=== PATIENT | female | born 1950 | race Caucasian/White ===

== ENCOUNTER 2018-11-22 12:52 | Inpatient (IN) ==
[2018-11-22] MEDS ORDERED: Isovue-370 500 ML BOTTLE IVP ONE (13:52)
[2018-11-22] MEDS ORDERED: Ipratropium/Albuterol Neb 3 ML IH ONE (13:52)
[2018-11-22] MEDS ORDERED: Ondansetron 4 MG/2 ML VIAL IVP ONE (13:52)
[2018-11-22 14:19] LABS: Basophils % 0.2 %; Hematocrit 50.8 % (35.3-44.9); Hemoglobin 16.3 g/dL (11.5-15.4); Immature Granulocytes % 0.6 % (0-4); Lymphocytes # 1.1 K/mcL (0.6-4.6); Lymphocytes % 8.6 %; Mean Corpuscular HGB Conc 32.1 g/dL (31.6-35.5); Mean Corpuscular Hemoglobin 28.2 pg (28.0-33.3); Mean Platelet Volume 9.7 fL (9.4-12.4); Monocytes # 0.8 K/mcL (0.0-1.3); Monocytes % 5.8 %; Neutrophils # 11.3 K/mcL (1.6-8.9); Platelet Count 177 K/mcL (140-400); Red Blood Count 5.77 M/mcL (3.82-4.97); Red Cell Distribution Width 15.8 % (11.5-14.5); Segmented Neutrophils % 84.8 %; White Blood Count 13.3 K/mcL (4.3-11.1)
[2018-11-22 14:26] LABS: INR 1.2; Prothrombin Time 13.5 Seconds (9.4-12.1)
[2018-11-22 14:29] LABS: Activated Partial Thrombo Time 34.8 Seconds (26.0-36.0)
[2018-11-22 14:40] LABS: Troponin I 0.04 ng/mL (< 0.04)
[2018-11-22] MEDS ORDERED: 0.9 % Sodium Chloride 1,000 ML IV ONE (14:45)
[2018-11-22] MEDS ORDERED: 0.9 % Sodium Chloride 1,000 ML IVC ONE (14:48)
[2018-11-22] MEDS ORDERED: Aspirin 325 MG TABLET PO ONE (14:48)
[2018-11-22 14:59] LABS: Alanine Aminotransferase 12 Units/L (7-52); Albumin 4.2 g/dL (3.5-5.7); Albumin/Globulin Ratio 1.3 (1.1-2.2); Alkaline Phosphatase 69 Units/L (34-104); Aspartate Amino Transferase 17 Units/L (13-39); BUN/Creatinine Ratio 46 (6-26); Bilirubin,Direct 0.3 mg/dL (0.0-0.2); Bilirubin,Indirect 0.5 mg/dL (0.0-1.2); Bilirubin,Total 0.8 mg/dL (0.3-1.0); Blood Urea Nitrogen 33 mg/dL (8-23); Calcium 9.7 mg/dL (8.6-10.3); Carbon Dioxide 28 mEq/L (23-29); Chloride 101 mEq/L (98-107); Globulin 3.3 g/dL (2.4-3.5); Glucose 99 mg/dL (70-105); Lipase 5 Units/L (11-82); Magnesium 2.3 mg/dL (1.6-2.6); Osmolality,Calculated 299 (280-300); Phosphorous 2.9 mg/dL (2.7-4.5); Potassium 3.7 mEq/L (3.5-5.1); Sodium 141 mEq/L (136-145); Total Protein 7.5 g/dL (6.4-8.9); eGFR For African Americans > 60 (> 60); eGFR For Non-African Americans > 60 (> 60)
[2018-11-22 16:39] LABS: Bilirubin,Urine Small (Negative); Blood,Urine Trace-intact (Negative); Clarity,Urine Clear (Clear); Color,Urine Yellow (Yellow); Glucose,Urine (UA) Normal (Normal); Ketones,Urine 15 mg/dL (Negative); Leukocyte Esterase,Urine Negative (Negative); Nitrite,Urine Negative (Negative); Protein,Urine 100 mg/dL (Neg-Trace)
[2018-11-22 16:41] LABS: Bacteria,Urine None Seen per hpf (None-Few); Hyaline Casts,Urine Few per lpf (None-Few); Squamous Epithelial Cell,Urine Many per lpf (None-Few)
--- NOTE | 2018-11-22 19:10 | Emergency Department Note ---
Disposition Clinical Impression: Bronchitis, Hypoxia, Nausea and vomiting Disposition: Admitted As Inpatient Condition: Good Referrals: NONE,PCP [Primary Care Provider] - Forms: ED Satisfaction Letter Time of Disposition: 20:40 General Adult HPI - General Chief complaint: ED Nausea/Vomiting/Diarrhea Stated complaint: N/V Time Seen by Provider: 11/22/18 13:49 Source: patient, family Limitations: no limitations - History of Present Illness HPI Narrative: Patient 68-year-old female that presents to the emergency department with chief complaint of shortness of breath and nausea and vomiting. The patient states that she has been feeling generally unwell for the last several days also reports she has had a cough and shortness of breath with this as well. Upon presentation the emergency department the patient had a low oxygen saturation in the 80s. The patient would require up to 4 L nasal cannula oxygen to maintain her saturations. The patient states that she also has prior history of a thoracic aneurysm that has not been followed in some time. Patient denies chest pain states that she does have prior history of asthma and also smokes cigarettes. Patient reports she has not been officially diagnosed with COPD Pain Scale: 4 - Related Data Home Medications Medication Instructions Recorded Confirmed Aspirin/Acetaminophen/Caffeine 1 tab PO DAILY PRN 11/22/18 11/22/18 [Excedrin Migraine Caplet] Benazepril/Hydrochlorothiazide 20 - 25 mg PO DAILY 11/22/18 11/22/18 Allergies Allergy/AdvReac Type Severity Reaction Status Date / Time No Known Allergies Allergy Verified 11/22/18 13:08 All systems ED: reviewed and negative except as stated. Past Medical History - Past Medical History Attestation: Yes The following information was validated with the patient. Medical history: Reports: COPD, GERD, hypertension Psychiatric history: Reports: no psych history - Social History Smoking Status: Current every day smoker Alcohol use: Reports: none Drug use: Reports: none Physical Exam General: Conversant and pleasant interactive and nontoxic. Head: Normocephalic/atraumatic Eyes:PERRLA, EOMI, no conjunctivitis Nares: Without d/c. Ears: No erythema or d/c noted. Oralpharnyx: P&MMM noted, Neck: Supple, no JVD or PIPE STEM SAWYER noted. Cardovascular: regular rate and rhythm without murmur, brisk capillary refill, no peripheral edema. Lungs: Scattered wheezes present bilaterally, non-labored Abd: Soft nontender, Non Distended, no guarding, no rebound. : Defered Extremities: moves all extremities equally Neuro: AOx3, no obvious gross neuro deficit Psych: Normal Affect Derm: No rash noted - General Limitations: no limitations General appearance: alert, in no apparent distress Course Course Narrative: The patient received DuoNeb to the emergency department due to her prior history of thoracic aortic aneurysm and shortness of breath the patient underwent a CT dissection protocol to evaluate for possible dissection or increasing size of her aneurysms. The CT found that the patient also had a infrarenal aneurysm that was 4.5 cm in size. Patient is currently not having abdominal pain and this can be followed by vascular. The CT scan did show that the patient had evidence of a bronchitis on the imaging. The patient will be given steroids and more breathing treatments in the emergency department given the fact that she has decreased oxygenation the patient case will be discussed with the hospitalist for admission. Vital Signs Temperature 98.1 F 11/22/18 13:06 Pulse Rate 108 11/22/18 13:06 Respiratory Rate 26 11/22/18 13:06 Blood Pressure 108/77 11/22/18 13:06 O2 Sat by Pulse Oximetry 94 11/22/18 13:06 Temperature 99 F 11/22/18 14:30 Pulse Rate 73 11/22/18 19:33 Respiratory Rate 20 11/22/18 19:33 Blood Pressure 143/83 11/22/18 19:33 O2 Sat by Pulse Oximetry 93 11/22/18 19:33 Oxygen Delivery Oxygen Delivery Nasal Cannula Medical Decision Making - Lab Data Result diagrams: 11/22/18 13:50 11/22/18 13:50 Lab Results 11/22/18 11/22/18 11/22/18 Range/Units 13:50 13:50 13:50 WBC 13.3 H (4.3-11.1) K/mcL RBC 5.77 H (3.82-4.97) M/mcL Hgb 16.3 H (11.5-15.4) g/dL Hct 50.8 H (35.3-44.9) % MCV 88.0 (83.0-100.0) fL MCH 28.2 (28.0-33.3) pg MCHC 32.1 (31.6-35.5) g/dL RDW 15.8 H (11.5-14.5) % Plt Count 177 (140-400) K/mcL MPV 9.7 (9.4-12.4) fL Immature Gran % 0.6 (0-4) % Seg Neutrophils % 84.8 % Lymphocytes % 8.6 % Monocytes % 5.8 % Eosinophils % 0.0 % Basophils % 0.2 % Neutrophils # 11.3 H (1.6-8.9) K/mcL Lymphocytes # 1.1 (0.6-4.6) K/mcL Monocytes # 0.8 (0.0-1.3) K/mcL Eosinophils # 0.0 (0.0-0.6) K/mcL Basophils # 0.0 (0.0-0.2) K/mcL PT 13.5 H (9.4-12.1) Seconds INR 1.2 APTT 34.8 (26.0-36.0) Seconds Sodium 141 (136-145) mEq/L Potassium 3.7 (3.5-5.1) mEq/L Chloride 101 (98-107) mEq/L Carbon Dioxide 28 (23-29) mEq/L BUN 33 H (8-23) mg/dL Creatinine 0.72 (0.60-1.20) mg/dL Est GFR ( Amer) > 60 (> 60) Est GFR (Non-Af Amer) > 60 (> 60) BUN/Creatinine Ratio 46 H (6-26) Glucose 99 (70-105) mg/dL Calculated Osmolality 299 (280-300) Lactic Acid (0.5-2.2) mmol/L Calcium 9.7 (8.6-10.3) mg/dL Phosphorus 2.9 (2.7-4.5) mg/dL Magnesium 2.3 (1.6-2.6) mg/dL Total Bilirubin 0.8 (0.3-1.0) mg/dL Direct Bilirubin 0.3 H (0.0-0.2) mg/dL Indirect Bilirubin 0.5 (0.0-1.2) mg/dL AST 17 (13-39) Units/L ALT 12 (7-52) Units/L Alkaline Phosphatase 69 (34-104) Units/L Troponin I 0.04 H* (< 0.04) ng/mL B-Natriuretic Peptide (Less than 100) pg/mL Serum Total Protein 7.5 (6.4-8.9) g/dL Albumin 4.2 (3.5-5.7) g/dL Globulin 3.3 (2.4-3.5) g/dL Albumin/Globulin Ratio 1.3 (1.1-2.2) Lipase 5 L (11-82) Units/L Urine Color (Yellow) Urine Clarity (Clear) Urine pH (5.0-8.0) pH Units Ur Specific [place] (1.010-1.025) Urine Protein (Neg-Trace) mg/dL Urine Glucose (UA) (Normal) mg/dL Urine Ketones (Negative) mg/dL Urine Blood (Negative) Urine Nitrite (Negative) Urine Bilirubin (Negative) Urine Urobilinogen (Normal) mg/dL Ur Leukocyte Esterase (Negative) Urine Microscopic RBC (0-3) per hpf Urine Microscopic WBC (0-3) per hpf Ur Squamous Epith Cells (None-Few) per lpf Urine Bacteria (None-Few) per hpf Hyaline Casts (None-Few) per lpf Ur Culture Indicated? (NO) 11/22/18 11/22/18 11/22/18 Range/Units 13:50 13:50 16:18 WBC (4.3-11.1) K/mcL RBC (3.82-4.97) M/mcL Hgb (11.5-15.4) g/dL Hct (35.3-44.9) % MCV (83.0-100.0) fL MCH (28.0-33.3) pg MCHC (31.6-35.5) g/dL RDW (11.5-14.5) % Plt Count (140-400) K/mcL MPV (9.4-12.4) fL Immature Gran % (0-4) % Seg Neutrophils % % Lymphocytes % % Monocytes % % Eosinophils % % Basophils % % Neutrophils # (1.6-8.9) K/mcL Lymphocytes # (0.6-4.6) K/mcL Monocytes # (0.0-1.3) K/mcL Eosinophils # (0.0-0.6) K/mcL Basophils # (0.0-0.2) K/mcL PT (9.4-12.1) Seconds INR APTT (26.0-36.0) Seconds Sodium (136-145) mEq/L Potassium (3.5-5.1) mEq/L Chloride (98-107) mEq/L Carbon Dioxide (23-29) mEq/L BUN (8-23) mg/dL Creatinine (0.60-1.20) mg/dL Est GFR ( Amer) (> 60) Est GFR (Non-Af Amer) (> 60) BUN/Creatinine Ratio (6-26) Glucose (70-105) mg/dL Calculated Osmolality (280-300) Lactic Acid 1.8 (0.5-2.2) mmol/L Calcium (8.6-10.3) mg/dL Phosphorus (2.7-4.5) mg/dL Magnesium (1.6-2.6) mg/dL Total Bilirubin (0.3-1.0) mg/dL Direct Bilirubin (0.0-0.2) mg/dL Indirect Bilirubin (0.0-1.2) mg/dL AST (13-39) Units/L ALT (7-52) Units/L Alkaline Phosphatase (34-104) Units/L Troponin I (< 0.04) ng/mL B-Natriuretic Peptide 73 (Less than 100) pg/mL Serum Total Protein (6.4-8.9) g/dL Albumin (3.5-5.7) g/dL Globulin (2.4-3.5) g/dL Albumin/Globulin Ratio (1.1-2.2) Lipase (11-82) Units/L Urine Color Yellow (Yellow) Urine Clarity Clear (Clear) Urine pH 6.0 (5.0-8.0) pH Units Ur Specific [place] 1.020 (1.010-1.025) Urine Protein 100 H (Neg-Trace) mg/dL Urine Glucose (UA) Normal (Normal) mg/dL Urine Ketones 15 H (Negative) mg/dL Urine Blood Trace-intact H (Negative) Urine Nitrite Negative (Negative) Urine Bilirubin Small H (Negative) Urine Urobilinogen 2.0 H (Normal) mg/dL Ur Leukocyte Esterase Negative (Negative) Urine Microscopic RBC 3-5 H (0-3) per hpf Urine Microscopic WBC 3-5 H (0-3) per hpf Ur Squamous Epith Cells Many H (None-Few) per lpf Urine Bacteria None Seen (None-Few) per hpf Hyaline Casts Few (None-Few) per lpf Ur Culture Indicated? NO (NO)
[2018-11-22] MEDS ORDERED: methylPREDNISolone 125 MG/2 ML VIAL IVP ONE (19:11)
[2018-11-22] MEDS ORDERED: Azithromycin 500 MG in D5% in Water 250 ML IVPB ONE (20:34)
[2018-11-22] MEDS ORDERED: Naloxone 0.4 MG/ML INJ IVP PRN (21:17)
[2018-11-22] MEDS ORDERED: Ondansetron 4 MG/2 ML VIAL IVP PRN (21:17)
[2018-11-22] MEDS ORDERED: *HR* HYDROcodone/Acet 5/325 mg TABLET PO PRN (21:17)
[2018-11-22] MEDS ORDERED: Acetaminophen 325 MG TABLET PO PRN (21:17)
[2018-11-22] MEDS ORDERED: *HR* OxyCODONE Immed Rel 5 MG TABLET PO PRN (21:17)
--- NOTE | 2018-11-22 21:25 | Internal Med History&Physical ---
Date of Encounter: 11/22/18 Time of Encounter: 21:23 Internal Medicine - H&P: HPI Chief complaint: Dyspnea, cough Admitted From: Emergency Dept Plans for Post Hospital Care: Home History of present illness: Ms. Tran is a 68 year old female with history of hypertension presents with shortness of breath and cough. Patient states that her symptoms developed 3 days ago they have been gradually worsening over that time. She reports significant shortness of breath that is worse with ambulation. She reports Dr. stewart with white sputum. She states her daughter was recently diagnosed with bronchitis. She states nothing seems to make her symptoms better. She reports subjective fevers and chills. She states this feels similar to when she had pneumonia several years ago. She reports occasional episodes of nausea and vomiting. She denies chest pain, abdominal pain. Discussed with patient who wishes to be full code. Past Med Surg Social Fam HX - Past Medical History Medical history: COPD, GERD, hypertension Psychiatric history: no psych history - Past Surgical History Surgical History: non-contributory - Social History Smoking Status: Current every day smoker Alcohol use: none Drug use: none - Additional Family History Additional family history: Patient denies any significant family history. Internal Medicine - H&P: Meds Aspirin/Acetaminophen/Caffeine [Excedrin Migraine Caplet] 1 tab PO DAILY PRN [History] Benazepril/Hydrochlorothiazide 20 - 25 mg PO DAILY 11/22/18 [History] Allergy/AdvReac Type Severity Reaction Status Date / Time No Known Allergies Allergy Verified 11/22/18 13:08 All Systems PM: A 10-system review of systems was performed and is negative for pertinent findings except as documented above in the HPI. Review of systems: 10 point review of systems was obtained and negative other than stated below: - Constitutional Constitutional: no chills, no fever(s) - Cardiovascular Cardiovascular ROS IM: dyspnea, dyspnea on exertion, no chest pain - Respiratory Respiratory: cough, chest congestion, excessive phlegm production, change in phlegm color - Gastrointestinal Gastrointestinal: nausea, vomiting, no abdominal pain - Musculoskeletal Musculoskeletal ROS IM: no numbness, no tingling - Constitutional Vitals: Temp Pulse Resp BP Pulse Ox 99 F 73 20 143/83 93 11/22/18 14:30 11/22/18 19:33 11/22/18 19:33 11/22/18 19:33 11/22/18 19:33 General appearance: Present: A&O X 3, pleasant Exam: Mild respiratory distress - Head Head exam: Present: atraumatic, normal inspection, normocephalic - Eye Eye exam: Present: EOMI, PERRL - ENT ENT exam: Present: mucous membranes moist, normal oropharynx - Neck Neck exam general surgery: Present: full ROM. Absent: tenderness - Respiratory Respiratory exam: Present: respiratory distress (mild), rhonchi (Diffuse), wheezes (Occasional end expiratory). Absent: rales, tachypnea - Cardiovascular Cardiovascular exam: Present: RRR. Absent: gallop, rubs, systolic murmur - GI/Abdominal GI/Abdominal exam: Present: normal bowel sounds, soft. Absent: distended, tenderness - Extremities Exam Extremities exam: Present: warm. Absent: pedal edema, tenderness - Neurological Exam Neurological exam: Present: alert, CN II-XII intact, oriented X3, no focal deficits, strengths equal and symetr throughout. Absent: facial droop, speech deficit - Psychiatric Psychiatric exam: Present: normal affect, normal mood Internal Med - H&P Results - Labs CBC & Chem 7: 11/22/18 13:50 11/22/18 13:50 Labs: Short CBC 11/22/18 Range/Units 13:50 WBC 13.3 H (4.3-11.1) K/mcL Hgb 16.3 H (11.5-15.4) g/dL Hct 50.8 H (35.3-44.9) % Plt Count 177 (140-400) K/mcL Neutrophils # 11.3 H (1.6-8.9) K/mcL BMP 11/22/18 13:50 Sodium 141 Potassium 3.7 Chloride 101 Carbon Dioxide 28 BUN 33 H Creatinine 0.72 Glucose 99 Calcium 9.7 Cardiac Enzymes 11/22/18 Range/Units 13:50 Troponin I 0.04 H* (< 0.04) ng/mL Liver Function 11/22/18 Range/Units 13:50 Total Bilirubin 0.8 (0.3-1.0) mg/dL Direct Bilirubin 0.3 H (0.0-0.2) mg/dL AST 17 (13-39) Units/L ALT 12 (7-52) Units/L Alkaline Phosphatase 69 (34-104) Units/L Albumin 4.2 (3.5-5.7) g/dL Urine 11/22/18 Range/Units 16:18 Urine Color Yellow (Yellow) Urine Clarity Clear (Clear) Urine pH 6.0 (5.0-8.0) pH Units Ur Specific [place] 1.020 (1.010-1.025) Urine Protein 100 H (Neg-Trace) mg/dL Urine Glucose (UA) Normal (Normal) mg/dL - Impressions ITS Impressions Chest X-Ray 11/22/18 13:51 IMPRESSION: No acute pulmonary process. D/ / 11/22/2018 14:09:06 Tee Henson MD / angel Interpreting Provider: Tee Henson MD Dissection 11/22/18 13:52 IMPRESSION: 1. Extensive coronary and aortic atherosclerotic calcifications. A 4.3 cm ascending thoracic aortic aneurysm. A 4.5 cm infrarenal abdominal aortic aneurysm (see recommendations). A 1.7 cm distal right common iliac artery aneurysm. No evidence of aortic dissection. 2. No acute pulmonary emboli. 3. Bilateral lower lobe predominance bronchitis/bronchiolitis. No lobar pneumonia. 4. A 0.7 cm solid right lower lobe pulmonary nodule, see recommendations. 5. No acute abdominal/pelvic process. Extensive sigmoid colonic diverticulosis. 6. Cholelithiasis with no evidence of acute cholecystitis or biliary obstruction. RECOMMENDATIONS: Managing Abdominal Aortic Aneurysms 4.0-4.4 cm: Every 1 year. Recommend vascular consultation. 4.5-5.4 cm: Every 6 months. Recommend vascular consultation. Greater than or equal to 5.5 cm: Referral to vascular surgeon. *For abdominal aortas with maximum diameter of 2.6-2.9 cm meeting criteria for AAA (>50% of proximal normal segment). Reference: J Vasc Surg. 2009 Mar;50(4 Suppl):S2-49 Fleischner Society guidelines for follow-up and management of incidentally detected pulmonary nodules: Single Solid Nodule: Nodule size equals 6-8 mm In a low-risk patient, CT at 6-12 months, then consider CT at 18-24 months. In a high-risk patient, CT at 6-12 months, then CT at 18-24 months. Nodule size greater than 8 mm In a low-risk patient, consider CT at 3 months, PET/CT, or tissue sampling. In a high-risk patient, consider CT at 3 months, PET/CT, or tissue sampling. - Low risk patients include individuals with minimal or absent history of smoking and other known risk factors. - High risk patients include individuals with a history or smoking or known risk factors. Radiology 2017 http://pubs.rsna.org/doi/full/10.1148/radiol.5611327419 D/ / 11/22/2018 16:42:32 Tee Henson MD / jennifer Interpreting Provider: Tee Henson MD - Assessment and Plan (1) Acute respiratory failure with hypoxia Current Visit: Yes Status: Acute Assessment and plan: Patient presented with shortness of breath and hypoxia requiring 5 L of oxygen to maintain her saturation in the low 90s. Secondary to bronchitis and COPD exacerbation. Continue supplemental oxygen to maintain saturation greater than 88%. (2) COPD exacerbation Current Visit: Yes Status: Acute Assessment and plan: Secondary to bronchitis. Patient presents with increasing shortness of breath, sputum production, change in sputum color. Patient has there been diagnosed formally COPD but we will treat for presumed underlying COPD with exacerbation given her smoking history and wheezing on exam. Start antibiotics with azithromycin and Rocephin, IV Solu-Medrol 60 mg every 6, scheduled bronchodilators. (3) Bronchitis Current Visit: Yes Status: Acute Assessment and plan: CT scan shows inflammation of the bronchus concerning for bronchitis. No evidence of overt pneumonia however patient is diffusely rhonchorous. We will treat with Rocephin and Zithromax for now given her hypoxia. Check procalcitonin, respiratory infection panel, strep and legionella urinary an tigen. (4) Hypertension Current Visit: Yes Status: Acute Assessment and plan: Blood pressure mildly elevated. Continue home medications. Qualifiers: Hypertension type: essential hypertension Qualified Code(s): I10 - Essential (primary) hypertension (5) DVT prophylaxis Current Visit: Yes Status: Acute Assessment and plan: Heparin 5000 units subcutaneous twice a day - Time Spent With Patient Total time spent is greater than 50% in coordination of care (as documented) at patient's floor/unit and/or counseling patient:
[2018-11-22] MEDS ORDERED: Azithromycin 500 MG in D5% in Water 250 ML IVPB SCH (22:00)
[2018-11-22] MEDS: Budesonide/Formoterol 160/4.5 1 PUFF INH IH SCH (23:53)
[2018-11-22] MEDS: Ipratropium/Albuterol Neb 3 ML IH SCH (23:54)
[2018-11-23] MEDS: cefTRIAXone 2,000 MG in 0.9 % Sodium Chloride Mini Bag 100 ML IVPB SCH (02:07)
[2018-11-23] MEDS ORDERED: Azithromycin 500 MG in D5% in Water 250 ML IVPB SCH (03:00)
[2018-11-23 03:20] LABS: Basophils % 0.1 %; Hematocrit 43.1 % (35.3-44.9); Immature Granulocytes % 0.4 % (0-4); Lymphocytes # 0.4 K/mcL (0.6-4.6); Lymphocytes % 6.4 %; Mean Corpuscular HGB Conc 31.3 g/dL (31.6-35.5); Mean Corpuscular Hemoglobin 28.2 pg (28.0-33.3); Mean Platelet Volume 9.8 fL (9.4-12.4); Monocytes # 0.1 K/mcL (0.0-1.3); Monocytes % 1.3 %; Neutrophils # 6.2 K/mcL (1.6-8.9); Platelet Count 149 K/mcL (140-400); Red Blood Count 4.79 M/mcL (3.82-4.97); Red Cell Distribution Width 15.5 % (11.5-14.5); Segmented Neutrophils % 91.8 %; White Blood Count 6.7 K/mcL (4.3-11.1)
[2018-11-23 03:22] LABS: Hemoglobin 13.5 g/dL (11.5-15.4)
[2018-11-23 03:42] LABS: BUN/Creatinine Ratio 51 (6-26); Blood Urea Nitrogen 26 mg/dL (8-23); Calcium 8.6 mg/dL (8.6-10.3); Carbon Dioxide 26 mEq/L (23-29); Chloride 105 mEq/L (98-107); Glucose 249 mg/dL (70-105); Magnesium 2.1 mg/dL (1.6-2.6); Osmolality,Calculated 305 (280-300); Potassium 3.9 mEq/L (3.5-5.1); Sodium 141 mEq/L (136-145); eGFR For African Americans > 60 (> 60); eGFR For Non-African Americans > 60 (> 60)
[2018-11-23] MEDS: Ipratropium/Albuterol Neb 3 ML IH SCH ×6 (04:01→23:56)
[2018-11-23] MEDS: Budesonide/Formoterol 160/4.5 1 PUFF INH IH SCH ×2 (07:28→20:20)
[2018-11-23] MEDS ORDERED: methylPREDNISolone 125 MG/2 ML VIAL IVP SCH ×2 (08:45)
--- NOTE | 2018-11-23 08:50 | Internal Med Progress Note ---
Hospitalist Progress Note - Encounter Date of Encounter: 11/23/18 Time of Encounter: 08:49 - Subjective Interval History: Sincerely and examined this morning in the center. No acute coronary events. Breathing much improved. Denies any chest pain. Denies any nausea vomiting diarrhea. Denies any urinary difficulties. - Exam Vitals: Temp Pulse Resp BP Pulse Ox 97.7 F 60 15 126/78 94 11/23/18 06:44 11/23/18 06:44 11/23/18 07:30 11/23/18 06:44 11/23/18 07:30 Exam: General: In no acute distress. Respiratory exam: no accessory muscle use. diffuse wheezing. Cardiovascular exam: RRR, +S1, +S2. no murmur, gallop, rubs. GI/Abdominal exam: Non-tender, Non-distended, normal bowel sounds, soft, no peritoneal signs. Extremities exam: no pedal edema, pulses palpable in b/l lower extremities. no calf tenderness Neurological exam: CN II-XII intact, AO X3, no focal deficits. Skin exam: No skin rash - Assessment and Plan (1) Bronchitis Current Visit: Yes Status: Acute (2) COPD exacerbation Current Visit: Yes Status: Acute (3) Acute respiratory failure with hypoxia Current Visit: Yes Status: Acute (4) Hypertension Current Visit: Yes Status: Acute (5) DVT prophylaxis Current Visit: Yes Status: Acute - Summary of Assessment and Plan Summary of Assessment and Plan: Assessment Acute Acute respiratory failure with hypoxia COPD exacerbation Bronchitis Throacic aneurysm infrarenal aortic aneurysm Diverticulosis 0.7 cm solid right lower lobe pulmonary nodule elevate troponin Chronic HTN Plan - c/w empiric ceftriaxone/azithromycin and bronchodilators. Taper steroids. c/w supplemental oxygen. f/u RIP and urine ag. elevated procal - Patient currently without chest pain. EKG without ischemic signs, has PACs. Without chest pain, troponin likely demand. - Continue home antihypertensives - Heparin 5000 units for dvt ppx - Counselled on smoking cessation. Quit 1 week ago. encouraged to remanin abstinent - Will need outpatient follow up for monitoring aneurysm and lung nodule. - Time Spent with Patient Total time spent is greater than 50% in coordination of care (as documented) at patient's floor/unit and/or counseling patient: Internal Medicine: Result - Labs CBC & Chem 7: 11/23/18 02:43 11/23/18 02:43 Labs: Short CBC 11/22/18 11/23/18 Range/Units 13:50 02:43 WBC 13.3 H 6.7 (4.3-11.1) K/mcL Hgb 16.3 H 13.5 D (11.5-15.4) g/dL Hct 50.8 H 43.1 (35.3-44.9) % Plt Count 177 149 (140-400) K/mcL Neutrophils # 11.3 H 6.2 (1.6-8.9) K/mcL BMP 11/22/18 11/23/18 13:50 02:43 Sodium 141 141 Potassium 3.7 3.9 Chloride 101 105 Carbon Dioxide 28 26 BUN 33 H 26 H Creatinine 0.72 0.51 L Glucose 99 249 H Calcium 9.7 8.6 Cardiac Enzymes 11/22/18 Range/Units 13:50 Troponin I 0.04 H* (< 0.04) ng/mL Liver Function 11/22/18 Range/Units 13:50 Total Bilirubin 0.8 (0.3-1.0) mg/dL Direct Bilirubin 0.3 H (0.0-0.2) mg/dL AST 17 (13-39) Units/L ALT 12 (7-52) Units/L Alkaline Phosphatase 69 (34-104) Units/L Albumin 4.2 (3.5-5.7) g/dL Urine 11/22/18 Range/Units 16:18 Urine Color Yellow (Yellow) Urine Clarity Clear (Clear) Urine pH 6.0 (5.0-8.0) pH Units Ur Specific [place] 1.020 (1.010-1.025) Urine Protein 100 H (Neg-Trace) mg/dL Urine Glucose (UA) Normal (Normal) mg/dL - ABG Interpretation ABG results: PT/INR, D-dimer PT 13.5 Seconds (9.4-12.1) H 11/22/18 13:50 - Impressions Impressions Chest X-Ray 11/22/18 13:51 IMPRESSION: No acute pulmonary process. D/ / 11/22/2018 14:09:06 Tee Henson MD / angel Interpreting Provider: Tee Henson MD Dissection 11/22/18 13:52 IMPRESSION: 1. Extensive coronary and aortic atherosclerotic calcifications. A 4.3 cm ascending thoracic aortic aneurysm. A 4.5 cm infrarenal abdominal aortic aneurysm (see recommendations). A 1.7 cm distal right common iliac artery aneurysm. No evidence of aortic dissection. 2. No acute pulmonary emboli. 3. Bilateral lower lobe predominance bronchitis/bronchiolitis. No lobar pneumonia. 4. A 0.7 cm solid right lower lobe pulmonary nodule, see recommendations. 5. No acute abdominal/pelvic process. Extensive sigmoid colonic diverticulosis. 6. Cholelithiasis with no evidence of acute cholecystitis or biliary obstruction. RECOMMENDATIONS: Managing Abdominal Aortic Aneurysms 4.0-4.4 cm: Every 1 year. Recommend vascular consultation. 4.5-5.4 cm: Every 6 months. Recommend vascular consultation. Greater than or equal to 5.5 cm: Referral to vascular surgeon. *For abdominal aortas with maximum diameter of 2.6-2.9 cm meeting criteria for AAA (>50% of proximal normal segment). Reference: J Vasc Surg. 2009 Mar;50(4 Suppl):S2-49 Fleischner Society guidelines for follow-up and management of incidentally detected pulmonary nodules: Single Solid Nodule: Nodule size equals 6-8 mm In a low-risk patient, CT at 6-12 months, then consider CT at 18-24 months. In a high-risk patient, CT at 6-12 months, then CT at 18-24 months. Nodule size greater than 8 mm In a low-risk patient, consider CT at 3 months, PET/CT, or tissue sampling. In a high-risk patient, consider CT at 3 months, PET/CT, or tissue sampling. - Low risk patients include individuals with minimal or absent history of smoking and other known risk factors. - High risk patients include individuals with a history or smoking or known risk factors. Radiology 2017 http://pubs.rsna.org/doi/full/10.1148/radiol.1863351990 D/ / 11/22/2018 16:42:32 Tee Henson MD / jennifer Interpreting Provider: Tee Henson MD Consult Discharge Plan - Plan Referrals: NONE,PCP [Primary Care Provider] - (4) Hypertension Qualifiers: Hypertension type: essential hypertension Qualified Code(s): I10 - Essential (primary) hypertension
[2018-11-23] MEDS ORDERED: *HR* Dextrose 50 % in Water (Syg) 50 ML SYRINGE IVP PRN (11:41)
[2018-11-23] MEDS ORDERED: D5% in Water 1,000 ML IVC PRN (11:41)
[2018-11-23] MEDS ORDERED: Dextrose Gel 15 GM/37.5 ML TUBE PO PRN ×2 (11:41)
[2018-11-23] MEDS: methylPREDNISolone 125 MG/2 ML VIAL IVP SCH ×2 (12:02→22:01)
[2018-11-23] MEDS: Insulin LISPRO 300 UNITS/3 ML VIAL SQ SCH ×3 (15:39→20:46)
--- NOTE | 2018-11-23 22:12 | Electrocardiograph Report ---
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
[2018-11-24] MEDS: Azithromycin 500 MG in D5% in Water 250 ML IVPB SCH (02:06)
[2018-11-24] MEDS: Ipratropium/Albuterol Neb 3 ML IH SCH ×6 (04:24→23:20)
[2018-11-24] MEDS: Budesonide/Formoterol 160/4.5 1 PUFF INH IH SCH ×2 (07:34→19:32)
[2018-11-24 07:58] LABS: Basophils % 0.2 %; Hematocrit 42.4 % (35.3-44.9); Hemoglobin 13.2 g/dL (11.5-15.4); Immature Granulocytes % 0.9 % (0-4); Lymphocytes # 0.8 K/mcL (0.6-4.6); Lymphocytes % 6.1 %; Mean Corpuscular HGB Conc 31.1 g/dL (31.6-35.5); Mean Corpuscular Hemoglobin 27.9 pg (28.0-33.3); Mean Corpuscular Volume 89.6 fL (83.0-100.0); Mean Platelet Volume 10.2 fL (9.4-12.4); Monocytes # 0.4 K/mcL (0.0-1.3); Monocytes % 3.4 %; Neutrophils # 11.4 K/mcL (1.6-8.9); Platelet Count 192 K/mcL (140-400); Red Blood Count 4.73 M/mcL (3.82-4.97); Red Cell Distribution Width 15.5 % (11.5-14.5); Segmented Neutrophils % 89.4 %
[2018-11-24 08:01] LABS: White Blood Count 12.8 K/mcL (4.3-11.1)
[2018-11-24 08:02] LABS: Platelet Estimate Normal (Normal); Reactive Lymphocytes Present (Not Present)
[2018-11-24 08:21] LABS: BUN/Creatinine Ratio 49 (6-26); Blood Urea Nitrogen 26 mg/dL (8-23); Calcium 9.1 mg/dL (8.6-10.3); Carbon Dioxide 27 mEq/L (23-29); Chloride 106 mEq/L (98-107); Glucose 127 mg/dL (70-105); Osmolality,Calculated 298 (280-300); Potassium 3.6 mEq/L (3.5-5.1); Sodium 141 mEq/L (136-145); Troponin I < 0.03 ng/mL (< 0.04); eGFR For African Americans > 60 (> 60); eGFR For Non-African Americans > 60 (> 60)
[2018-11-24 09:00] LABS: Adenovirus Not Detected (Not Detect); Bordetella Pertussis Not Detected (Not Detect); Chlamydophila pneumoniae Not Detected (Not Detect); Coronavirus 229E Not Detected (Not Detect); Coronavirus HKU1 Not Detected (Not Detect); Coronavirus NL63 Not Detected (Not Detect); Coronavirus OC43 Not Detected (Not Detect); Human Metapneumovirus Not Detected (Not Detect); Human Rhinovirus/Enterovirus Not Detected (Not Detect); Influenza A Subtype 2009 H1 Not Detected (Not Detect); Influenza A Untypeable Not Detected (Not Detect); Influenza B Not Detected (Not Detect); Mycoplasma pneumoniae Not Detected (Not Detect); Parainfluenza Virus 1 Not Detected (Not Detect); Parainfluenza Virus 2 Not Detected (Not Detect); Parainfluenza Virus 3 DETECTED (Not Detect); Parainfluenza Virus 4 Not Detected (Not Detect); Respiratory Syncytial Virus Not Detected (Not Detect)
[2018-11-24] MEDS ORDERED: BENAZEPRIL PO SCH (09:00)
[2018-11-24] MEDS ORDERED: HYDROCHLOROTHIAZIDE PO SCH (09:00)
[2018-11-24] MEDS: Lisinopril 20 MG TABLET PO SCH (09:24)
[2018-11-24] MEDS: hydroCHLOROthiazide 25 MG TABLET PO SCH (09:24)
[2018-11-24] MEDS: methylPREDNISolone 125 MG/2 ML VIAL IVP SCH (09:24)
[2018-11-24] MEDS: Insulin LISPRO 300 UNITS/3 ML VIAL SQ SCH ×4 (09:24→21:05)
--- NOTE | 2018-11-24 13:52 | Internal Med Progress Note ---
Hospitalist Progress Note - Encounter Date of Encounter: 11/24/18 Time of Encounter: 13:48 - Subjective Interval History: Patient seen and examined this morning at bedside. No acute overnight events. Denies new complaints. Denies any nausea vomiting diarrhea abdominal pain. Breathing much improved. Denies any chest pain. - Exam Vitals: Temp Pulse Resp BP Pulse Ox 98.2 F 76 16 116/70 94 11/24/18 10:54 11/24/18 10:54 11/24/18 10:54 11/24/18 10:54 11/24/18 10:54 Exam: General: In no acute distress. Respiratory exam: no accessory muscle use. CTAB Cardiovascular exam: RRR, +S1, +S2. no murmur, gallop, rubs. GI/Abdominal exam: Non-tender, Non-distended, normal bowel sounds, soft, no peritoneal signs. Extremities exam: no pedal edema, pulses palpable in b/l lower extremities. no calf tenderness Neurological exam: CN II-XII intact, AO X3, no focal deficits. Skin exam: No skin rash - Assessment and Plan (1) Bronchitis Current Visit: Yes Status: Acute (2) COPD exacerbation Current Visit: Yes Status: Acute (3) Acute respiratory failure with hypoxia Current Visit: Yes Status: Acute (4) Hypertension Current Visit: Yes Status: Acute (5) DVT prophylaxis Current Visit: Yes Status: Acute - Summary of Assessment and Plan Summary of Assessment and Plan: Assessment Acute Acute respiratory failure with hypoxia COPD exacerbation Bronchitis Throacic aneurysm infrarenal aortic aneurysm Diverticulosis 0.7 cm solid right lower lobe pulmonary nodule elevate troponin Chronic HTN Plan - c/w empiric ceftriaxone/azithromycin and bronchodilators. Taper steroids. c/w supplemental oxygen. Will qualify for oxygen with 6 min walk. RIP positive for parainfluenza and negative urine ag. elevated procal. Possible secondary bacterial infection. c/w antbiotics. - Patient currently without chest pain. EKG without ischemic signs, has PACs. Without chest pain, troponin likely demand. Will need outpatient cardiology follow up. - Continue home antihypertensives - Heparin 5000 units for dvt ppx - Counselled on smoking cessation. Quit 1 week ago. encouraged to remain abstinent. Patient enthusiatic to remain abstinent. - Will need outpatient follow up for with vascular surgery and 6 months aneurysm monitoring and for lung nodule as well. - Time Spent with Patient Total time spent is greater than 50% in coordination of care (as documented) at patient's floor/unit and/or counseling patient: Internal Medicine: Result - Labs CBC & Chem 7: 11/24/18 07:11 11/24/18 07:11 Labs: Short CBC 11/24/18 Range/Units 07:11 WBC 12.8 H D (4.3-11.1) K/mcL Hgb 13.2 (11.5-15.4) g/dL Hct 42.4 (35.3-44.9) % Plt Count 192 (140-400) K/mcL Neutrophils # 11.4 H (1.6-8.9) K/mcL BMP 11/24/18 07:11 Sodium 141 Potassium 3.6 Chloride 106 Carbon Dioxide 27 BUN 26 H Creatinine 0.53 L Glucose 127 H Calcium 9.1 Cardiac Enzymes 11/24/18 Range/Units 07:11 Troponin I < 0.03 (< 0.04) ng/mL - ABG Interpretation ABG results: PT/INR, D-dimer PT 13.5 Seconds (9.4-12.1) H 11/22/18 13:50 Consult Discharge Plan - Plan Referrals: NONE,PCP [Primary Care Provider] - ____ (4) Hypertension Qualifiers: Hypertension type: essential hypertension Qualified Code(s): I10 - Essential (primary) hypertension
[2018-11-24] MEDS: cefTRIAXone 2,000 MG in 0.9 % Sodium Chloride Mini Bag 100 ML IVPB SCH (22:17)
[2018-11-25] MEDS: Azithromycin 500 MG in D5% in Water 250 ML IVPB SCH (02:36)
[2018-11-25] MEDS: Ipratropium/Albuterol Neb 3 ML IH SCH ×6 (03:43→23:50)
[2018-11-25] MEDS: Acetaminophen/Aspirin/Caffeine TABLET PO PRN (04:15)
[2018-11-25] MEDS: cefTRIAXone 2,000 MG in 0.9 % Sodium Chloride Mini Bag 100 ML IVPB SCH (07:12)
[2018-11-25] MEDS: hydroCHLOROthiazide 25 MG TABLET PO SCH (07:21)
[2018-11-25] MEDS: Lisinopril 20 MG TABLET PO SCH (07:21)
[2018-11-25] MEDS: Insulin LISPRO 300 UNITS/3 ML VIAL SQ SCH ×4 (07:27→21:16)
[2018-11-25] MEDS: Budesonide/Formoterol 160/4.5 1 PUFF INH IH SCH ×2 (08:15→20:01)
[2018-11-25] MEDS ORDERED: methylPREDNISolone 125 MG/2 ML VIAL IVP SCH (09:00)
[2018-11-25] MEDS ORDERED: MethylPREDNISolone 40 MG/ML VIAL IVP SCH (09:00)
--- NOTE | 2018-11-25 11:05 | Internal Med Progress Note ---
Hospitalist Progress Note - Encounter Date of Encounter: 11/25/18 Time of Encounter: 08:02 - Subjective Interval History: Patient seen and examined this morning at bedside. No acute overnight events. Patient not feeling as well as yesterday. Denies any fevers chills nausea or vomiting. Denies any diarrhea or abdominal pain or urinary complaints. - Exam Vitals: Temp Pulse Resp BP Pulse Ox 97.7 F 81 16 153/88 91 11/25/18 10:30 11/25/18 10:30 11/25/18 10:30 11/25/18 10:30 11/25/18 10:30 Exam: General: In no acute distress. Respiratory exam: no accessory muscle use. Coarse breath sounds and bilateral rhonchi Cardiovascular exam: RRR, +S1, +S2. no murmur, gallop, rubs. GI/Abdominal exam: Non-tender, Non-distended, normal bowel sounds, soft, no peritoneal signs. Extremities exam: no pedal edema, pulses palpable in b/l lower extremities. no calf tenderness Neurological exam: CN II-XII intact, AO X3, no focal deficits. Skin exam: No skin rash - Assessment and Plan (1) Bronchitis Current Visit: Yes Status: Acute (2) COPD exacerbation Current Visit: Yes Status: Acute (3) Acute respiratory failure with hypoxia Current Visit: Yes Status: Acute (4) Hypertension Current Visit: Yes Status: Acute (5) DVT prophylaxis Current Visit: Yes Status: Acute - Summary of Assessment and Plan Summary of Assessment and Plan: Assessment Acute Acute respiratory failure with hypoxia COPD exacerbation Bronchitis Parainfluenza positive Throacic aneurysm infrarenal aortic aneurysm Diverticulosis 0.7 cm solid right lower lobe pulmonary nodule elevate troponin Chronic HTN COPD GERD Plan - Patient's breathing is slightly worse today than yesterday. We increased his steroid dose and c/w empiric azithromycin for 5 days, Symbicort and bronchodilators. Likely will need a longer steroid taper on discharge. c/w supplemental oxygen. Will qualify for oxygen with 6 min walk. RIP positive for parainfluenza and negative urine ag. elevated procal. Possible secondary bact erial infection. Repeat chest x-ray with no consult due to process c/w azithromycin. - Patient currently without chest pain. EKG without ischemic signs, has PACs. Without chest pain, troponin likely demand. Will need outpatient cardiology follow up. - Continue home antihypertensives - Heparin 5000 units for dvt ppx - Counselled on smoking cessation. Quit recently. Patient enthusiatic to remain abstinent given her COPD and vascular problems - Will need outpatient follow up for with vascular surgery in 6 months for thoracic and infrarenal aortic aneurysm monitoring and for lung nodule as well. - Time Spent with Patient Total time spent is greater than 50% in coordination of care (as documented) at patient's floor/unit and/or counseling patient: Internal Medicine: Result - Labs CBC & Chem 7: 11/24/18 07:11 11/24/18 07:11 - ABG Interpretation ABG results: PT/INR, D-dimer PT 13.5 Seconds (9.4-12.1) H 11/22/18 13:50 - Impressions Impressions Chest X-Ray 11/25/18 07:52 IMPRESSION: 1. Reticular opacities in the bilateral bases, right greater than left. Findings are most compatible with infectious/inflammatory etiology. 2. COPD. D/ / 11/25/2018 09:13:13 Kitty Li MD / jennifer Interpreting Provider: Kitty Li MD Consult Discharge Plan - Plan Referrals: NONE,PCP [Primary Care Provider] - (4) Hypertension Qualifiers: Hypertension type: essential hypertension Qualified Code(s): I10 - Essential (primary) hypertension
[2018-11-25] MEDS: MethylPREDNISolone 40 MG/ML VIAL IVP SCH (16:53)
[2018-11-26] MEDS: Azithromycin 500 MG in D5% in Water 250 ML IVPB SCH (01:52)
[2018-11-26] MEDS: Acetaminophen/Aspirin/Caffeine TABLET PO PRN (02:54)
[2018-11-26] MEDS: Ipratropium/Albuterol Neb 3 ML IH SCH ×3 (04:09→11:08)
[2018-11-26] MEDS: MethylPREDNISolone 40 MG/ML VIAL IVP SCH (06:41)
[2018-11-26] MEDS: Budesonide/Formoterol 160/4.5 1 PUFF INH IH SCH (07:33)
[2018-11-26] MEDS: hydroCHLOROthiazide 25 MG TABLET PO SCH (08:16)
[2018-11-26] MEDS: Lisinopril 20 MG TABLET PO SCH (08:16)
[2018-11-26] MEDS: Insulin LISPRO 300 UNITS/3 ML VIAL SQ SCH ×2 (08:17→12:41)
--- NOTE | 2018-11-26 10:27 | Discharge Summary ---
- NOTES TO OUTPATIENT PROVIDER Notes to Outpatient Provider: Family to follow-up with pulmonology within 1-2 weeks for COPD and lung nodule. Patient also need follow-up with cardiology for possible stress test and vascular surgery for aneurysms Orders not resulted at time of discharge: Pending orders 11/22/18 14:00 Culture,Blood [BC] Stat Date of Encounter: 11/26/18 Time of Encounter: 10:26 - Discharge Diagnosis (1) Bronchitis Priority: Primary Status: Acute (2) COPD exacerbation Priority: Secondary Status: Acute (3) Acute respiratory failure with hypoxia Priority: Primary Status: Acute (4) Hypertension Priority: Secondary Status: Acute Qualifiers: Hypertension type: essential hypertension Qualified Code(s): I10 - Essential (primary) hypertension (5) DVT prophylaxis Priority: Secondary Status: Acute Hospital course: Ms. Tran is a 68 year old female with past medical history of COPD, hypertension continue to smoke not on any home inhalers came with complain of shortness of breath. Patient was admitted for COPD exacerbation and started on empiric antibiotic, IV steroids and breathing treatment. CT/showed infrarenal aortic aneurysm and ascending thoracic aortic aneurysm and right lower lobe pulmonary nodule. Patient decided to stop smoking which was encouraged. Patient improved over the course of her 5 days of hospital stay. Patient did have elevated troponin of 0.4 on admission however which improved on trending and she did not have any chest pain during the entire hospitalization. Patient significantly improved over the course of her stay and stable to be discharged home. Patient may need to follow up with vascular surgery for aneurysm, we will need to get CT chest follow-up in 6 months to one year and follow-up with pulmonology as well as cardiology as outpatient. Discharge discussed with: patient, nurse, social work - Time Spent with Patient Total time spent providing and/or coordinating discharge services: Time spent: Greater than 30 minutes (40) - Discharge Medications Prescriptions: New Albuterol Sulfate [Albuterol Inhaler] 2 puff IH Q4HR PRN 30 Days #1 hfa.aer.ad PRN Reason: Shortness Of Breath/Wheezing Ipratropium/Albuterol Neb [Duoneb] 3 ml IH Q6HR 4 Days #16 inhsol predniSONE [PredniSONE] See Taper PO DAILY 12 Days #45 tablet Budesonide/Formoterol 160/4.5 [Symbicort 160/4.5] 2 puff IH BIDR 30 Days #1 inh Azithromycin [Zithromax Tri-Addi] 500 mg PO DAILY 2 Days #2 tablet Continued Benazepril/Hydrochlorothiazide 20 - 25 mg PO DAILY Aspirin/Acetaminophen/Caffeine [Excedrin Migraine Caplet] 1 tab PO DAILY PRN PRN Reason: Headache Home Medications: Aspirin/Acetaminophen/Caffeine [Excedrin Migraine Caplet] 1 tab PO DAILY PRN 11/22/18 [History] Benazepril/Hydrochlorothiazide 20 - 25 mg PO DAILY 11/22/18 [History] Albuterol Sulfate [Albuterol Inhaler] 2 puff IH Q4HR PRN 30 Days #1 hfa.aer.ad 11/26/18 [Rx] Azithromycin [Zithromax Tri-Addi] 500 mg PO DAILY 2 Days #2 tablet 11/26/18 [Rx] Budesonide/Formoterol 160/4.5 [Symbicort 160/4.5] 2 puff IH BIDR 30 Days #1 inh 11/26/18 [Rx] Ipratropium/Albuterol Neb [Duoneb] 3 ml IH Q6HR 4 Days #16 inhsol 11/26/18 [Rx] predniSONE [PredniSONE] See Taper PO DAILY 12 Days #45 tablet 11/26/18 [Rx] Allergies/Adverse Reactions: Allergy/AdvReac Type Severity Reaction Status Date / Time No Known Allergies Allergy Verified 11/22/18 13:08 Date of admission: 11/25/18 12:42 Primary care physician: PCP NONE Consults: 11/23/18 07:43 Consult to Nurse Navigator [CONS] Routine Comment: copd Discharging clinician: Abeba Holley - Constitutional Vitals: Temp Pulse Resp BP Pulse Ox 98.3 F 73 18 138/83 92 11/26/18 07:27 11/26/18 07:27 11/26/18 07:33 11/26/18 07:27 11/26/18 07:33 Exam: General: In no acute distress. Respiratory exam: no accessory muscle use. CTAB Cardiovascular exam: RRR, +S1, +S2. no murmur, gallop, rubs. GI/Abdominal exam: Non-tender, Non-distended, normal bowel sounds, soft, no peritoneal signs. Extremities exam: no pedal edema, pulses palpable in b/l lower extremities. no calf tenderness Neurological exam: CN II-XII intact, AO X3, no focal deficits. Skin exam: No skin rash - Patient Status Disposition: Home, Self-Care Condition: Good - Discharge Instructions Instructions: Chronic Obstructive Pulmonary Disease (DC) Follow Up With: Luis Smith DO [Partnered Physician] - 11/30/18 10:30 am (Please bring your photo ID, insurance card and any medications you are on. If you need to cancel, please give a 24 hour notice. Thank you) - Diet and Activity Activity: increase activity as tolerated
[2018-11-26 12:29] VITALS: BP 114/67
--- NOTE | 2018-11-27 16:28 | Electrocardiograph Report ---
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
== END 2018-11-26 15:57 | disposition home or self-care (01) | DRG 190 ==
LOC: EMEROOARM 12:52 → 3ANU 12:52 → SUATTDRO 22:39 → 3ANU 11-23 00:02
PROVIDERS: ADMIT Family Medicine; ATTEND Internal Medicine

== ENCOUNTER 2021-08-09 22:26 | Inpatient (IN) ==
[2021-08-10] MEDS ORDERED: Naloxone 0.4 MG/ML INJ IVP PRN (02:27)
[2021-08-10] MEDS ORDERED: Melatonin 3 MG TABLET PO PRN (02:27)
[2021-08-10] MEDS ORDERED: Ondansetron 4 MG/2 ML VIAL IVP PRN (02:27)
[2021-08-10] MEDS ORDERED: Acetaminophen 325 MG TABLET PO PRN (02:27)
[2021-08-10] MEDS: Acetylcysteine 10% 2 ML INHSOL IH SCH ×4 (03:45→21:00)
[2021-08-10] MEDS: *HR* Heparin 5,000 UNIT/ML VIAL SQ SCH ×3 (05:27→19:33)
[2021-08-10 06:21] LABS: Basophils % 0.1 %; Hematocrit 47.5 % (35.3-44.9); Hemoglobin 15.2 g/dL (11.5-15.4); Immature Granulocytes % 0.5 % (0-4); Lymphocytes # 0.6 K/mcL (0.6-4.6); Lymphocytes % 5.5 %; Mean Corpuscular Volume 90.6 fL (83.0-100.0); Monocytes # 0.4 K/mcL (0.0-1.3); Monocytes % 4.1 %; Neutrophils # 9.5 K/mcL (1.6-8.9); Platelet Count 183 K/mcL (140-400); Red Blood Count 5.24 M/mcL (3.82-4.97); Segmented Neutrophils % 89.8 %; White Blood Count 10.6 K/mcL (4.3-11.1)
[2021-08-10 06:26] LABS: INR 1.2; Prothrombin Time 13.4 Seconds (9.4-12.1)
[2021-08-10 06:36] LABS: BUN/Creatinine Ratio 26 (6-26); Blood Urea Nitrogen 18 mg/dL (8-23); Calcium 8.7 mg/dL (8.6-10.3); Carbon Dioxide 25 mEq/L (23-29); Chloride 106 mEq/L (98-107); Glucose 124 mg/dL (70-105); Osmolality,Calculated 291 (280-300); Potassium 3.8 mEq/L (3.5-5.1); Sodium 139 mEq/L (136-145); eGFR For African Americans > 60 (> 60); eGFR For Non-African Americans > 60 (> 60)
[2021-08-10] MEDS: levoFLOXacin 750 MG/150 ML 750 MG/150 ML BAG IVPB SCH (08:22)
[2021-08-10] MEDS ORDERED: predniSONE 20 MG TABLET PO SCH (09:00)
[2021-08-10] MEDS: Ipratropium/Albuterol Neb 3 ML IH PRN ×3 (09:40→21:00)
[2021-08-10] MEDS: MethylPREDNISolone 40 MG/ML VIAL IVP SCH ×2 (10:15→16:07)
[2021-08-10] MEDS: Budesonide/Formoterol 160/4.5 1 PUFF INH IH SCH (21:25)
[2021-08-11] MEDS: MethylPREDNISolone 40 MG/ML VIAL IVP SCH ×4 (00:12→23:36)
[2021-08-11] MEDS: Acetylcysteine 10% 2 ML INHSOL IH SCH ×4 (04:32→19:55)
[2021-08-11] MEDS: Ipratropium/Albuterol Neb 3 ML IH PRN ×4 (04:32→19:55)
[2021-08-11] MEDS: *HR* Heparin 5,000 UNIT/ML VIAL SQ SCH ×3 (05:32→21:11)
[2021-08-11] MEDS: Budesonide/Formoterol 160/4.5 1 PUFF INH IH SCH ×2 (07:41→19:54)
[2021-08-11] MEDS: levoFLOXacin 750 MG/150 ML 750 MG/150 ML BAG IVPB SCH (08:18)
[2021-08-11] MEDS ORDERED: VISINE TEARS DROPS 15 ML BOTH EYES PRN (16:12)
[2021-08-12] MEDS: Acetylcysteine 10% 2 ML INHSOL IH SCH (03:56)
[2021-08-12] MEDS: Ipratropium/Albuterol Neb 3 ML IH PRN (03:56)
[2021-08-12 04:57] LABS: Basophils % 0.1 %; Hematocrit 44.8 % (35.3-44.9); Hemoglobin 14.5 g/dL (11.5-15.4); Immature Granulocytes % 0.8 % (0-4); Lymphocytes # 0.6 K/mcL (0.6-4.6); Lymphocytes % 4.8 %; Mean Corpuscular HGB Conc 32.4 g/dL (31.6-35.5); Mean Corpuscular Hemoglobin 29.4 pg (28.0-33.3); Mean Corpuscular Volume 90.9 fL (83.0-100.0); Mean Platelet Volume 9.8 fL (9.4-12.4); Monocytes # 0.3 K/mcL (0.0-1.3); Monocytes % 2.3 %; Neutrophils # 11.2 K/mcL (1.6-8.9); Platelet Count 186 K/mcL (140-400); Red Blood Count 4.93 M/mcL (3.82-4.97); Red Cell Distribution Width 14.7 % (11.5-14.5); White Blood Count 12.2 K/mcL (4.3-11.1)
[2021-08-12 05:17] LABS: BUN/Creatinine Ratio 41 (6-26); Blood Urea Nitrogen 28 mg/dL (8-23); Calcium 8.7 mg/dL (8.6-10.3); Carbon Dioxide 26 mEq/L (23-29); Chloride 103 mEq/L (98-107); Glucose 127 mg/dL (70-105); Osmolality,Calculated 297 (280-300); Potassium 3.7 mEq/L (3.5-5.1); Sodium 140 mEq/L (136-145); eGFR For African Americans > 60 (> 60); eGFR For Non-African Americans > 60 (> 60)
[2021-08-12] MEDS: *HR* Heparin 5,000 UNIT/ML VIAL SQ SCH ×3 (05:25→20:23)
[2021-08-12] MEDS: levoFLOXacin 750 MG/150 ML 750 MG/150 ML BAG IVPB SCH (10:34)
[2021-08-12] MEDS: MethylPREDNISolone 40 MG/ML VIAL IVP SCH ×2 (10:35→20:23)
[2021-08-12] MEDS: Budesonide/Formoterol 160/4.5 1 PUFF INH IH SCH ×2 (11:13→19:55)
[2021-08-12] MEDS: Ipratropium/Albuterol Neb 3 ML IH SCH ×5 (11:14→23:26)
[2021-08-13 02:38] LABS: Basophils % 0.4 %; Hematocrit 43.3 % (35.3-44.9); Hemoglobin 14.2 g/dL (11.5-15.4); Immature Granulocytes % 1.7 % (0-4); Lymphocytes # 0.6 K/mcL (0.6-4.6); Lymphocytes % 5.7 %; Mean Corpuscular HGB Conc 32.8 g/dL (31.6-35.5); Mean Corpuscular Hemoglobin 29.8 pg (28.0-33.3); Mean Platelet Volume 10.1 fL (9.4-12.4); Monocytes # 0.3 K/mcL (0.0-1.3); Monocytes % 3.3 %; Neutrophils # 8.6 K/mcL (1.6-8.9); Platelet Count 194 K/mcL (140-400); Red Blood Count 4.76 M/mcL (3.82-4.97); Red Cell Distribution Width 14.6 % (11.5-14.5); Segmented Neutrophils % 88.9 %; White Blood Count 9.6 K/mcL (4.3-11.1)
[2021-08-13] MEDS: Ipratropium/Albuterol Neb 3 ML IH SCH ×3 (04:04→11:31)
[2021-08-13] MEDS: *HR* Heparin 5,000 UNIT/ML VIAL SQ SCH (05:14)
[2021-08-13] MEDS: Budesonide/Formoterol 160/4.5 1 PUFF INH IH SCH (07:30)
[2021-08-13] MEDS ORDERED: predniSONE 20 MG TABLET PO SCH (10:00)
[2021-08-13] MEDS ORDERED: levoFLOXacin 750 MG TABLET PO SCH (10:00)
[2021-08-13 11:01] VITALS: BP 151/84; PULSE 83; TEMP 97.7; O2SAT 93
[2021-08-13] MEDS: levoFLOXacin 750 MG/150 ML 750 MG/150 ML BAG IVPB SCH (13:21)
[2021-08-13] MEDS: MethylPREDNISolone 40 MG/ML VIAL IVP SCH (13:21)
== END 2021-08-13 14:05 | disposition home or self-care (01) | DRG 193 ==
LOC: 3NENU → SUATTDRO 08-10 02:06
PROVIDERS: ADMIT Internal Medicine; ATTEND Internal Medicine

== ENCOUNTER 2021-12-30 06:04 | Inpatient (IN) ==
[2021-12-30] MEDS ORDERED: CeFAZolin Syr 2,000MG/20 ML 2,000 MG/20 ML SYRINGE IVPB ONE (06:17)
[2021-12-30] MEDS ORDERED: *HR* Succinylcholine 200 MG/10 ML VIAL IVP ONE (06:30)
[2021-12-30] MEDS ORDERED: Ondansetron 4 MG/2 ML VIAL ONE (06:30)
[2021-12-30] MEDS ORDERED: *HR* Rocuronium Bromide 50 MG/5 ML VIAL ONE ×2 (06:30→08:52)
[2021-12-30] MEDS ORDERED: Lidocaine HCL 4 ML Topical Solution (Laryng-O-Jet Kit Sterile Pak) TP ONE (06:30)
[2021-12-30] MEDS ORDERED: Lidocaine -MPF 2% 5 ML VIAL ONE (06:30)
[2021-12-30] MEDS ORDERED: Ringers Solution, Lactated 1,000 ML IVC SCH (06:30)
[2021-12-30] MEDS ORDERED: *HR* Propofol 200 MG/20 ML VIAL IVP ONE (06:35)
[2021-12-30] MEDS ORDERED: *HR* FentaNYL (PF) 100 MCG/2 ML VIAL ONE ×2 (06:36→08:57)
[2021-12-30] MEDS ORDERED: *HR* Phenylephrine 10 MG/ML VIAL ONE (06:45)
[2021-12-30] MEDS ORDERED: Acetaminophen IV 1,000 MG/100 ML BAG IVPB ONE (07:00)
[2021-12-30] MEDS ORDERED: Famotidine 20 MG/2 ML VIAL IVP ONE (07:00)
[2021-12-30] MEDS ORDERED: Bupivacaine-MPF 0.25% 10 ML VIAL ONE (07:04)
[2021-12-30] MEDS ORDERED: Heparin 1,000 UNITS/500 mL 1,000 ML ONE ×2 (07:04→07:19)
[2021-12-30] MEDS ORDERED: Iopamidol - 300 100 ML INFUS..BTL ONE ×2 (07:05→07:18)
[2021-12-30] MEDS ORDERED: NiCARdipine 2.5 MG/10 ML Syringe IVPB ONE (07:09)
[2021-12-30] MEDS ORDERED: EPHEDrine 50 MG/ML VIAL ONE (07:10)
[2021-12-30] MEDS ORDERED: Heparin 1,000 UNITS/500 mL 500 ML ONE (07:14)
[2021-12-30] MEDS ORDERED: Iopamidol - 300 50 ML VIAL ONE (07:18)
[2021-12-30] MEDS ORDERED: Vancomycin 1,000 MG VIAL ONE (07:19)
[2021-12-30] MEDS ORDERED: Vancomycin 1,000 MG, Sodium Chloride IRRigation 1,000 ML IR ONE (07:45)
[2021-12-30] MEDS ORDERED: *HR* Labetalol 20 MG/4 ML SYRINGE IVP PRN ×2 (08:29→12:12)
[2021-12-30] MEDS ORDERED: Ondansetron 4 MG/2 ML VIAL IVP PRN ×2 (08:29→12:12)
[2021-12-30] MEDS ORDERED: Morphine Sulfate 2 MG/ML SYRINGE IVP PRN (08:29)
[2021-12-30] MEDS ORDERED: Sugammadex Sodium 200 MG/2 ML VIAL IV ONE (09:59)
[2021-12-30] MEDS ORDERED: *HR* HYDROcodone/Acet 5/325 mg TABLET PO PRN (12:12)
[2021-12-30] MEDS ORDERED: Acetaminophen/Aspirin/Caffeine TABLET PO PRN (12:12)
[2021-12-30] MEDS ORDERED: Acetaminophen 325 MG TABLET PO PRN (12:12)
[2021-12-30] MEDS ORDERED: Naloxone 0.4 MG/ML INJ IVP PRN (12:12)
[2021-12-30] MEDS ORDERED: VISINE TEARS DROPS 15 ML BOTH EYES PRN (12:12)
[2021-12-30] MEDS ORDERED: *HR* OxyCODONE Immed Rel 5 MG TABLET PO PRN (12:12)
[2021-12-30] MEDS ORDERED: Ipratropium/Albuterol Neb 3 ML IH PRN (12:12)
[2021-12-30] MEDS ORDERED: 0.9 % Sodium Chloride 1,000 ML IVC SCH (12:12)
[2021-12-30] MEDS: *HR* Metoprolol 5 MG/5 ML VIAL IVP SCH ×3 (12:50→23:52)
[2021-12-30] MEDS: CeFAZolin 2 GM/120 ML BAG IVPB SCH ×2 (15:31→23:43)
[2021-12-30] MEDS: Budesonide/Formoterol 160/4.5 1 PUFF INH IH SCH (20:30)
[2021-12-31 04:57] LABS: Basophils % 0.2 %; Hematocrit 38.8 % (35.3-44.9); Hemoglobin 12.1 g/dL (11.5-15.4); Immature Granulocytes % 0.3 % (0-4); Lymphocytes % 8.3 %; Mean Corpuscular HGB Conc 31.2 g/dL (31.6-35.5); Mean Corpuscular Hemoglobin 28.1 pg (28.0-33.3); Mean Corpuscular Volume 90.2 fL (83.0-100.0); Mean Platelet Volume 9.9 fL (9.4-12.4); Monocytes # 0.8 K/mcL (0.0-1.3); Monocytes % 6.5 %; Neutrophils # 10.2 K/mcL (1.6-8.9); Platelet Count 183 K/mcL (140-400); Red Cell Distribution Width 15.4 % (11.5-14.5); Segmented Neutrophils % 84.7 %
[2021-12-31 05:12] LABS: BUN/Creatinine Ratio 18 (6-26); Blood Urea Nitrogen 10 mg/dL (8-23); Calcium 8.2 mg/dL (8.6-10.3); Carbon Dioxide 24 mEq/L (23-29); Chloride 109 mEq/L (98-107); Glucose 101 mg/dL (70-105); Osmolality,Calculated 287 (280-300); Potassium 3.6 mEq/L (3.5-5.1); Sodium 139 mEq/L (136-145); eGFR For African Americans > 60 (> 60); eGFR For Non-African Americans > 60 (> 60)
[2021-12-31] MEDS: *HR* Metoprolol 5 MG/5 ML VIAL IVP SCH ×2 (05:21→13:09)
[2021-12-31] MEDS ORDERED: *HR* Heparin 5,000 UNIT/ML VIAL SQ SCH ×2 (06:00)
[2021-12-31] MEDS: Budesonide/Formoterol 160/4.5 1 PUFF INH IH SCH (07:28)
[2021-12-31] MEDS ORDERED: hydroCHLOROthiazide 25 MG TABLET PO SCH (09:00)
[2021-12-31] MEDS ORDERED: Aspirin Enteric Coated 81 MG Tablet PO SCH (09:00)
[2021-12-31 11:17] VITALS: TEMP 98.4; O2SAT 97
[2021-12-31 14:25] VITALS: BP 123/63; PULSE 75
== END 2021-12-31 15:43 | disposition home or self-care (01) | DRG 269 ==
LOC: SAMDAY 06:04 → 2NNU 12:05
PROVIDERS: ADMIT Surgery; ATTEND Surgery

== ENCOUNTER 2022-01-01 13:04 | Inpatient (IN) ==
[2022-01-01 14:18] LABS: Basophils % 0.2 %; Hematocrit 45.6 % (35.3-44.9); Immature Granulocytes % 0.3 % (0-4); Lymphocytes # 0.7 K/mcL (0.6-4.6); Lymphocytes % 6.9 %; Mean Corpuscular HGB Conc 32.9 g/dL (31.6-35.5); Mean Corpuscular Hemoglobin 28.5 pg (28.0-33.3); Mean Corpuscular Volume 86.5 fL (83.0-100.0); Mean Platelet Volume 9.5 fL (9.4-12.4); Monocytes # 1.1 K/mcL (0.0-1.3); Monocytes % 10.7 %; Neutrophils # 8.4 K/mcL (1.6-8.9); Platelet Count 166 K/mcL (140-400); Red Blood Count 5.27 M/mcL (3.82-4.97); Red Cell Distribution Width 15.4 % (11.5-14.5); Segmented Neutrophils % 81.9 %; White Blood Count 10.2 K/mcL (4.3-11.1)
[2022-01-01 14:37] LABS: BUN/Creatinine Ratio 18 (6-26); Blood Urea Nitrogen 11 mg/dL (8-23); Calcium 9.2 mg/dL (8.6-10.3); Carbon Dioxide 27 mEq/L (23-29); Chloride 94 mEq/L (98-107); Glucose 95 mg/dL (70-105); Osmolality,Calculated 277 (280-300); Potassium 3.1 mEq/L (3.5-5.1); Sodium 134 mEq/L (136-145); eGFR For African Americans > 60 (> 60); eGFR For Non-African Americans > 60 (> 60)
[2022-01-01] MEDS ORDERED: Iopamidol - 370 500 ML MLS IVP ONE (15:22)
[2022-01-01] MEDS ORDERED: *HR* FentaNYL (PF) 100 MCG/2 ML VIAL IVP ONE (15:23)
[2022-01-01] MEDS ORDERED: 0.9 % Sodium Chloride 1,000 ML IVC ONE (15:23)
[2022-01-01] MEDS ORDERED: Ondansetron 4 MG/2 ML VIAL IVP ONE (15:23)
[2022-01-01 15:44] LABS: INR 1.1; Prothrombin Time 12.6 Seconds (9.4-12.1)
[2022-01-01 15:45] LABS: Alanine Aminotransferase 10 Units/L (7-52); Albumin 4.2 g/dL (3.5-5.7); Albumin/Globulin Ratio 1.4 (1.1-2.2); Alkaline Phosphatase 60 Units/L (34-104); Aspartate Amino Transferase 20 Units/L (13-39); Bilirubin,Direct 0.2 mg/dL (0.0-0.2); Bilirubin,Indirect 0.7 mg/dL (0.0-1.0); Bilirubin,Total 0.9 mg/dL (0.3-1.0); Globulin 2.9 g/dL (2.4-3.5); Lipase 4 Units/L (11-82); Total Protein 7.1 g/dL (6.4-8.9)
[2022-01-01 15:47] LABS: Activated Partial Thrombo Time 36.6 Seconds (26.0-36.0)
[2022-01-01 16:05] LABS: Thyroid Stimulating Hormone 0.688 mcIU/mL (0.340-5.600)
[2022-01-01 16:51] LABS: Bilirubin,Urine Negative (Negative); Blood,Urine Negative (Negative); Clarity,Urine Clear (Clear); Color,Urine Light-Yellow (Yellow); Glucose,Urine (UA) Normal (Normal); Ketones,Urine 20 mg/dL (Negative); Leukocyte Esterase,Urine Negative (Negative); Nitrite,Urine Negative (Negative); PH,Urine 7.5 pH Units (5.0-8.0); Protein,Urine 70 mg/dL (Neg-Trace); Specific Gravity,Urine > 1.030 (1.010-1.025); Squamous Epithelial Cell,Urine Few per hpf (None-Few); Urobilinogen,Urine Normal (Normal); WBC,Urine 0-3 per hpf (0-3)
[2022-01-01] MEDS ORDERED: Piperacillin/Tazobactam 3.375 GM in 0.9 % Sodium Chloride Mini Bag 100 ML IVPB ONE (17:01)
[2022-01-01] MEDS ORDERED: Ondansetron ODT 4 MG TAB.RAPDIS SL PRN (17:20)
[2022-01-01] MEDS ORDERED: Mag Hydrox/Al Hydrox/Simeth 30 ML UDC PO PRN (17:20)
[2022-01-01] MEDS ORDERED: MOM Conc 10 ML UD.LIQ PO PRN (17:20)
[2022-01-01] MEDS ORDERED: Melatonin 3 MG TABLET PO PRN (17:20)
[2022-01-01] MEDS ORDERED: Naloxone 0.4 MG/ML INJ IVP PRN (17:20)
[2022-01-01] MEDS ORDERED: Ondansetron 4 MG/2 ML VIAL IVP PRN (17:36)
[2022-01-01] MEDS ORDERED: *HR* Promethazine 25 MG/ML VIAL IM PRN (17:37)
[2022-01-01] MEDS: Nicotine 21 MG PATCH.TD24 TD SCH (19:52)
[2022-01-01] MEDS: 0.9 % Sodium Chloride 1,000 ML IVC SCH (19:52)
[2022-01-01] MEDS: *HR* Acetylcysteine 20% 600 MG/3 ML ORAL SYRINGE PO SCH (19:53)
[2022-01-01] MEDS: *HR* OxyCODONE/APAP 5/325 TABLET PO PRN (21:39)
[2022-01-01] MEDS: Ipratropium/Albuterol Neb 3 ML IH SCH (21:49)
[2022-01-01] MEDS: Piperacillin/Tazobactam 3.375 GM in 0.9 % Sodium Chloride Mini Bag 100 ML IVPB SCH (23:06)
[2022-01-01] MEDS: MethylPREDNISolone 40 MG/ML VIAL IVP SCH (23:06)
[2022-01-02] MEDS: Ipratropium/Albuterol Neb 3 ML IH SCH ×8 (00:48→23:20)
[2022-01-02] MEDS ORDERED: *HR* HYDROcodone/Acet 10/325 mg TABLET PO ONE (01:45)
[2022-01-02 02:05] LABS: Hematocrit 46.7 % (35.3-44.9); Hemoglobin 15.3 g/dL (11.5-15.4); Mean Corpuscular HGB Conc 32.8 g/dL (31.6-35.5); Mean Corpuscular Hemoglobin 28.5 pg (28.0-33.3); Mean Corpuscular Volume 87.1 fL (83.0-100.0); Mean Platelet Volume 10.1 fL (9.4-12.4); Platelet Count 145 K/mcL (140-400); Red Blood Count 5.36 M/mcL (3.82-4.97); Red Cell Distribution Width 15.5 % (11.5-14.5)
[2022-01-02 02:30] LABS: Alanine Aminotransferase 9 Units/L (7-52); Albumin 4.2 g/dL (3.5-5.7); Albumin/Globulin Ratio 1.7 (1.1-2.2); Alkaline Phosphatase 51 Units/L (34-104); Aspartate Amino Transferase 21 Units/L (13-39); BUN/Creatinine Ratio 21 (6-26); Bilirubin,Total 0.9 mg/dL (0.3-1.0); Blood Urea Nitrogen 11 mg/dL (8-23); Calcium 8.6 mg/dL (8.6-10.3); Carbon Dioxide 24 mEq/L (23-29); Chloride 98 mEq/L (98-107); Globulin 2.5 g/dL (2.4-3.5); Glucose 114 mg/dL (70-105); Osmolality,Calculated 280 (280-300); Potassium 3.3 mEq/L (3.5-5.1); Sodium 135 mEq/L (136-145); Total Protein 6.7 g/dL (6.4-8.9); eGFR For African Americans > 60 (> 60); eGFR For Non-African Americans > 60 (> 60)
[2022-01-02] MEDS: MethylPREDNISolone 40 MG/ML VIAL IVP SCH ×3 (08:05→22:58)
[2022-01-02] MEDS: Piperacillin/Tazobactam 3.375 GM in 0.9 % Sodium Chloride Mini Bag 100 ML IVPB SCH ×3 (08:05→22:58)
[2022-01-02] MEDS: Nicotine 21 MG PATCH.TD24 TD SCH (08:06)
[2022-01-02] MEDS: *HR* Acetylcysteine 20% 600 MG/3 ML ORAL SYRINGE PO SCH (09:38)
[2022-01-02] MEDS: 0.9 % Sodium Chloride 1,000 ML IVC SCH ×2 (09:39→14:38)
[2022-01-02 11:19] LABS: Magnesium 1.8 mg/dL (1.6-2.6)
[2022-01-02] MEDS: Prochlorperazine 10 MG/2 ML VIAL IVP SCH (14:29)
[2022-01-02] MEDS ORDERED: Acetylcysteine 10% 2 ML INHSOL IH SCH ×2 (16:00→22:00)
[2022-01-02] MEDS: *HR* OxyCODONE/APAP 5/325 TABLET PO PRN ×2 (16:24→23:00)
[2022-01-02] MEDS: Budesonide/Formoterol 160/4.5 1 PUFF INH IH SCH (19:49)
[2022-01-03] MEDS: Ipratropium/Albuterol Neb 3 ML IH SCH ×6 (03:17→23:26)
[2022-01-03] MEDS: 0.9 % Sodium Chloride 1,000 ML IVC SCH ×2 (05:27→15:56)
[2022-01-03 07:21] LABS: Basophils % 0.1 %; Hematocrit 42.3 % (35.3-44.9); Immature Granulocytes % 0.5 % (0-4); Lymphocytes # 0.4 K/mcL (0.6-4.6); Lymphocytes % 4.3 %; Mean Corpuscular HGB Conc 32.4 g/dL (31.6-35.5); Mean Corpuscular Hemoglobin 28.3 pg (28.0-33.3); Mean Corpuscular Volume 87.4 fL (83.0-100.0); Mean Platelet Volume 9.8 fL (9.4-12.4); Monocytes # 0.5 K/mcL (0.0-1.3); Monocytes % 5.6 %; Neutrophils # 8.2 K/mcL (1.6-8.9); Platelet Count 150 K/mcL (140-400); Red Blood Count 4.84 M/mcL (3.82-4.97); Red Cell Distribution Width 15.9 % (11.5-14.5); Segmented Neutrophils % 89.5 %; White Blood Count 9.1 K/mcL (4.3-11.1)
[2022-01-03 07:22] LABS: Hemoglobin 13.7 g/dL (11.5-15.4)
[2022-01-03] MEDS ORDERED: Ondansetron 4 MG/2 ML VIAL ONE (07:39)
[2022-01-03] MEDS ORDERED: Lidocaine HCL 4 ML Topical Solution (Laryng-O-Jet Kit Sterile Pak) TP ONE (07:39)
[2022-01-03] MEDS ORDERED: Lidocaine -MPF 4% 5 ML AMPUL ONE (07:39)
[2022-01-03] MEDS ORDERED: *HR* FentaNYL (PF) 100 MCG/2 ML VIAL ONE (07:40)
[2022-01-03 07:41] LABS: BUN/Creatinine Ratio 40 (6-26); Blood Urea Nitrogen 19 mg/dL (8-23); Calcium 8.3 mg/dL (8.6-10.3); Carbon Dioxide 24 mEq/L (23-29); Chloride 105 mEq/L (98-107); Glucose 111 mg/dL (70-105); Osmolality,Calculated 287 (280-300); Potassium 3.4 mEq/L (3.5-5.1); Sodium 137 mEq/L (136-145); eGFR For African Americans > 60 (> 60); eGFR For Non-African Americans > 60 (> 60)
[2022-01-03] MEDS: Budesonide/Formoterol 160/4.5 1 PUFF INH IH SCH ×3 (07:45→20:16)
[2022-01-03] MEDS: Acetylcysteine 10% 2 ML INHSOL IH SCH ×3 (07:45→20:16)
[2022-01-03] MEDS: MethylPREDNISolone 40 MG/ML VIAL IVP SCH ×3 (10:06→23:42)
[2022-01-03] MEDS: Nicotine 21 MG PATCH.TD24 TD SCH (10:29)
[2022-01-03] MEDS: Piperacillin/Tazobactam 3.375 GM in 0.9 % Sodium Chloride Mini Bag 100 ML IVPB SCH ×3 (10:29→23:43)
[2022-01-03] MEDS: Aspirin Enteric Coated 81 MG Tablet PO SCH (10:29)
[2022-01-03] MEDS: Prochlorperazine 10 MG/2 ML VIAL IVP SCH (13:41)
[2022-01-03] MEDS: Potassium Chloride Elixir 20 MEQ/15 ML UDC PO SCH (21:18)
[2022-01-04 03:36] VITALS: PULSE 91
[2022-01-04] MEDS: Ipratropium/Albuterol Neb 3 ML IH SCH ×3 (03:38→11:32)
[2022-01-04] MEDS: 0.9 % Sodium Chloride 1,000 ML IVC SCH (03:42)
[2022-01-04 06:16] LABS: Basophils % 0.2 %; Hematocrit 40.6 % (35.3-44.9); Hemoglobin 13.1 g/dL (11.5-15.4); Immature Granulocytes % 0.6 % (0-4); Lymphocytes # 0.4 K/mcL (0.6-4.6); Mean Corpuscular HGB Conc 32.3 g/dL (31.6-35.5); Mean Corpuscular Hemoglobin 28.5 pg (28.0-33.3); Mean Corpuscular Volume 88.5 fL (83.0-100.0); Mean Platelet Volume 9.8 fL (9.4-12.4); Monocytes # 0.5 K/mcL (0.0-1.3); Monocytes % 5.8 %; Neutrophils # 7.8 K/mcL (1.6-8.9); Platelet Count 144 K/mcL (140-400); Red Blood Count 4.59 M/mcL (3.82-4.97); Red Cell Distribution Width 16.2 % (11.5-14.5); Segmented Neutrophils % 89.4 %; White Blood Count 8.7 K/mcL (4.3-11.1)
[2022-01-04 06:38] LABS: BUN/Creatinine Ratio 35 (6-26); Blood Urea Nitrogen 20 mg/dL (8-23); Calcium 7.9 mg/dL (8.6-10.3); Carbon Dioxide 22 mEq/L (23-29); Chloride 109 mEq/L (98-107); Glucose 112 mg/dL (70-105); Osmolality,Calculated 293 (280-300); Potassium 3.9 mEq/L (3.5-5.1); Sodium 140 mEq/L (136-145); eGFR For African Americans > 60 (> 60); eGFR For Non-African Americans > 60 (> 60)
[2022-01-04] MEDS: Budesonide/Formoterol 160/4.5 1 PUFF INH IH SCH (07:34)
[2022-01-04] MEDS: Acetylcysteine 10% 2 ML INHSOL IH SCH (07:34)
[2022-01-04 08:11] VITALS: TEMP 97.9; O2SAT 92
[2022-01-04] MEDS: Aspirin Enteric Coated 81 MG Tablet PO SCH (08:11)
[2022-01-04] MEDS: Potassium Chloride Elixir 20 MEQ/15 ML UDC PO SCH (08:11)
[2022-01-04] MEDS: MethylPREDNISolone 40 MG/ML VIAL IVP SCH (08:11)
[2022-01-04] MEDS: Piperacillin/Tazobactam 3.375 GM in 0.9 % Sodium Chloride Mini Bag 100 ML IVPB SCH (08:12)
[2022-01-04] MEDS: Nicotine 21 MG PATCH.TD24 TD SCH (08:13)
[2022-01-04] MEDS: *HR* OxyCODONE/APAP 5/325 TABLET PO PRN (10:43)
[2022-01-04] MEDS: Prochlorperazine 10 MG/2 ML VIAL IVP SCH (12:03)
[2022-01-04] MEDS ORDERED: cloNIDine HCL 0.1 MG TABLET PO ONE (12:18)
[2022-01-04 14:59] VITALS: BP 158/89
== END 2022-01-04 15:39 | disposition home health service (06) | DRG 206 ==
LOC: 2NENU 13:04 → EMEROOARM 13:04 → SUATTDRO 17:21 → 3BNU 17:50
PROVIDERS: ADMIT Internal Medicine; ATTEND Registered Nurse